=== PATIENT | female | born 1990 ===

== ENCOUNTER 2024-01-19 21:33 | Emergency (ER) | payer BC ==
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
[2024-01-20 00:57] VITALS: BP 137/99; TEMP 97.4; O2SAT 100
== END 2024-01-19 23:18 | disposition home or self-care (01) ==
LOC: ER 21:33
DX: R55 Syncope and collapse (principal)
CPT/HCPCS: 99284